=== PATIENT | female | born 1970 | race Caucasian/White ===

== ENCOUNTER 2016-08-27 19:23 | Emergency (ER) | payer SELFPAY ==
[2016-09-03] MEDS ORDERED: HYDROCODONE/APAP 10-325 MG TABLET ONE (17:01)
[2016-09-03] MEDS ORDERED: VANCOMYCIN IV 200 ML ONE (17:02)
--- NOTE | 2016-09-11 10:10 | NUR ---
Mandatory information was entered as the patient is being departed from [facility] today.
== END 2016-09-11 10:12 | disposition left against medical advice (07) ==
LOC: CANPREER → ER 19:25
DX: Z75.3 Unavailability and inaccessibility of health-care facilities (principal)